=== PATIENT | male | born 1950 | race Caucasian/White ===

== ENCOUNTER 2019-11-05 12:16 | Emergency (ER) | payer MEDICARE, OTHER ==
[~2019-11-05] VITALS: Ht 170.2 cm; Wt 63.5 kg
[2019-11-05 13:29] LABS: Basophils # (auto) 0.1 10 ^3/uL (0-0.2); Basophils % (auto) 0.6 % (0.0-2.0); Eosinophils # (auto) 0.1 10 ^3/uL (0-0.8); Eosinophils % (auto) 0.9 % (0.0-7.0); Hematocrit 47.8 % (41.0-53.0); Hemoglobin 16.3 g/dL (13.5-17.5); Lymphocytes # (auto) 2.6 10 ^3/uL (0.4-5.4); Lymphocytes % (auto) 28.5 % (10.0-50.0); Mean Corpuscular Hemoglobin 33.7 pg (28.0-32.0); Mean Corpuscular Hgb Conc. 34.1 g/dL (32.0-36.0); Mean Corpuscular Volume 98.6 fL (80.0-100.0); Monocytes # (auto) 0.9 10 ^3/uL (0-1.3); Monocytes % (auto) 10.3 % (0.0-12.0); Neutrophils # (auto) 5.4 10 ^3/uL (1.6-8.6); Neutrophils % (auto) 59.7 % (37.0-80.0); Nucleated Red Blood Cells % 0.1 %; Platelet Count (auto) 274 10^3/uL (140-450); Red Blood Cells 4.84 10^6/uL (4.5-5.90); Red Cell Distribution Width 13.9 % (11.8-14.3)
[2019-11-05 14:08] LABS: Albumin 4.2 g/dL (3.4-5.0); Anion Gap 4 (5-15); Blood Urea Nitrogen 13 mg/dL (7-18); Calcium 8.7 mg/dL (8.5-10.1); Carbon Dioxide 24 mmol/L (21-32); Chloride 106 mmol/L (98-107); Glucose 103 mg/dL (74-106); Magnesium 2.7 mg/dL (1.6-2.6); Potassium 4.4 mmol/L (3.5-5.1); Sodium 134 mmol/L (136-145)
[2019-11-05 14:15] LABS: Alanine Aminotransferase 24 U/L (16-61); Alkaline Phosphatase 81 U/L (45-117); Aspartate Aminotransferase 13 U/L (15-37); BUN/Creatinine Ratio 16.5; GFR African American 125 mL/min; GFR Non-African American 103 mL/min; Total Protein 7.4 g/dL (6.4-8.2)
[2019-11-05 17:06] LABS: Alcohol, Urine < 3.0 mg/dL (0-10); Amphetamine Screen, Urine NEGATIVE (NEGATIVE); Barbiturate Scree,Urine NEGATIVE (NEGATIVE); Benzodiazephine Screen, Urine NEGATIVE (NEGATIVE); Cannabinoid Screen, Urine NEGATIVE (NEGATIVE); Cocaine Screen, Urine NEGATIVE (NEGATIVE); Opiate Scree,Urine NEGATIVE (NEGATIVE); Phencyclidine Screen, Urine NEGATIVE (NEGATIVE)
[2019-11-05 17:17] LABS: Urine Bacteria NONE SEEN /hpf (None Seen); Urine Blood Negative /uL (Negative); Urine Mucus FEW (None Seen); Urine Specific Gravity 1.016 (1.001-1.035); Urine WBC 1 /hpf (0 - 3)
[2019-11-05 18:03] VITALS: BP 153/88
== END 2019-11-05 18:04 | disposition home or self-care (01) ==
LOC: ER 12:16
DX: F41.9 Anxiety disorder, unspecified (principal); J44.9 Chronic obstructive pulmonary disease, unspecified; E86.0 Dehydration; F17.210 Nicotine dependence, cigarettes, uncomplicated
CPT/HCPCS: 36415; 71046; 80053; 80307; 81001; 83735; 83880; 84443; 84484; 85025; 93005

== ENCOUNTER 2021-09-12 14:55 | Inpatient (IN) | payer MEDICARE, OTHER ==
[~2021-09-12] VITALS: Ht 167.6 cm; Wt 65.0 kg
[2021-09-12] MEDS ORDERED: methylPREDNISolone SOD SUCC 125 MG/2 ML VL IV ONE (15:15)
[2021-09-12] MEDS ORDERED: ALBUTEROL SULF 2.5 MG/0.5ML(0.5%) NEB SOLN HHN ONE (15:30)
[2021-09-12] MEDS ORDERED: IPRATROPIUM BROM 0.5 MG/2.5ML INH SOL HHN ONE (15:30)
[2021-09-12 16:01] LABS: Basophils # (auto) 0 10 ^3/uL (0-0.2); Basophils % (auto) 0.3 % (0.0-2.0); Eosinophils # (auto) 0 10 ^3/uL (0-0.8); Hematocrit 31.9 % (41.0-53.0); Hemoglobin 10.2 g/dL (13.5-17.5); Lymphocytes # (auto) 1.7 10 ^3/uL (0.4-5.4); Lymphocytes % (auto) 18.1 % (10.0-50.0); Mean Corpuscular Hemoglobin 29.9 pg (28.0-32.0); Mean Corpuscular Hgb Conc. 32.1 g/dL (32.0-36.0); Mean Corpuscular Volume 93.1 fL (80.0-100.0); Monocytes # (auto) 1.4 10 ^3/uL (0-1.3); Neutrophils # (auto) 6.4 10 ^3/uL (1.6-8.6); Neutrophils % (auto) 66.6 % (37.0-80.0); Red Blood Cells 3.43 10^6/uL (4.5-5.90); Red Cell Distribution Width 19.2 % (11.8-14.3); White Blood Cell 9.6 10^3/uL (4.4-10.8)
[2021-09-12 16:06] LABS: Albumin 2.6 g/dL (3.4-5.0); Calcium 8.6 mg/dL (8.5-10.1); Magnesium 2.4 mg/dL (1.6-2.6); Potassium 4.5 mmol/L (3.5-5.1)
[2021-09-12 16:09] LABS: Bilirubin, Total 0.5 mg/dL (0.2-1.0); Total Protein 5.5 g/dL (6.4-8.2)
[2021-09-12 16:19] LABS: Lactic Acid w/Reflex 2.4 mmol/L (0.4-2.0)
[2021-09-12] MEDS ORDERED: FUROSEMIDE 20 MG/2 ML VIAL IV ONE (17:15)
[2021-09-12] MEDS ORDERED: AZITHROMYCIN 500MG/ 250ML 250 ML IV ONE (17:15)
[2021-09-12] MEDS ORDERED: HYDROcodone-ACET 5/325MG TAB PO PRN (17:15)
[2021-09-12] MEDS ORDERED: cefTRIAXone 1GM/50ML D5W 50 ML IV ONE (17:15)
[2021-09-12] MEDS ORDERED: LORazepam 0.5 MG TAB PO PRN (17:15)
[2021-09-12] MEDS ORDERED: HYDROmorphone HCL 2 MG/ML VL/or syr IV PRN (17:15)
[2021-09-12] MEDS ORDERED: MORPHINE SULFATE INJ 2 MG/ml SYRG IV PRN (17:15)
[2021-09-12] MEDS ORDERED: DOCUSATE SOD 100 MG CAP PO PRN (17:15)
[2021-09-12] MEDS ORDERED: ONDANSETRON HCL 4 MG/2 ML VIAL IV PRN (17:15)
[2021-09-12] MEDS ORDERED: NITROGLYCERIN 0.4 MG SL TAB SL PRN (17:15)
[2021-09-12] MEDS ORDERED: DIGOXIN (250MCG/ML) 2 ML AMPULE IV ONE (17:45)
[2021-09-12] MEDS: LEVALBUTEROL HCL 1.25 MG/3 ML NEB NEB SCH (19:33)
[2021-09-12] MEDS: IPRATROPIUM BROM 0.5 MG/2.5ML INH SOL NEB SCH (19:33)
[2021-09-12] MEDS: methylPREDNISolone SOD SUCC 40 MG/ML VL IV SCH (22:42)
[2021-09-12] MEDS: DOXYCYCLINE 100 MG TAB/CAP PO SCH (22:42)
[2021-09-12] MEDS: SODIUM CHLOR 0.9% PF (SALINE LOCK) 10ML VIAL/SYR IV SCH (22:42)
[2021-09-13] VITALS (7 sets, daily range): BP systolic 116–144; BP diastolic 54–68
[2021-09-13] MEDS: LEVALBUTEROL HCL 1.25 MG/3 ML NEB NEB SCH ×4 (00:28→18:58)
[2021-09-13] MEDS: IPRATROPIUM BROM 0.5 MG/2.5ML INH SOL NEB SCH ×4 (00:29→18:58)
[2021-09-13] MEDS ORDERED: ALBU0.084 (03:17)
[2021-09-13] MEDS ORDERED: LOSA-69 PO (03:17)
[2021-09-13] MEDS ORDERED: FLUT1AER3 INH (03:17)
[2021-09-13] MEDS: SODIUM CHLOR 0.9% PF (SALINE LOCK) 10ML VIAL/SYR IV SCH ×3 (06:03→21:23)
[2021-09-13] MEDS: methylPREDNISolone SOD SUCC 40 MG/ML VL IV SCH ×3 (06:05→21:23)
[2021-09-13 06:15] LABS: BUN/Creatinine Ratio 19.2; Calcium 8.7 mg/dL (8.5-10.1); Potassium 4.5 mmol/L (3.5-5.1)
[2021-09-13] MEDS: cefTRIAXone 1GM/50ML D5W 50 ML IV SCH (09:32)
[2021-09-13] MEDS: DOXYCYCLINE 100 MG TAB/CAP PO SCH ×2 (09:33→21:24)
[2021-09-13] MEDS: PANTOPRAZOLE 40 MG TAB PO SCH (09:33)
[2021-09-13] MEDS ORDERED: LOSARTAN POTASSIUM 25 MG TAB PO SCH (10:00)
[2021-09-13] MEDS ORDERED: AMIODARONE HCL 200 MG TAB PO ONE (12:00)
[2021-09-13] MEDS ORDERED: APIXABAN 2.5 MG TAB PO ONE (12:00)
[2021-09-13] MEDS ORDERED: FUROSEMIDE 20 MG/2 ML VIAL IV ONE (12:45)
[2021-09-13] MEDS ORDERED: POLYETHYLENE GLYCOL 17 GM PWDR PO ONE (16:45)
[2021-09-13] MEDS: APIXABAN 5 MG TAB PO SCH (21:24)
[2021-09-13] MEDS: METOPROLOL TARTRATE 25 MG TAB PO SCH (21:24)
[2021-09-14] MEDS: LEVALBUTEROL HCL 1.25 MG/3 ML NEB NEB SCH ×4 (00:30→19:16)
[2021-09-14] MEDS: IPRATROPIUM BROM 0.5 MG/2.5ML INH SOL NEB SCH ×4 (00:30→19:16)
[2021-09-14 05:00] VITALS: BP 141/69
[2021-09-14] MEDS: SODIUM CHLOR 0.9% PF (SALINE LOCK) 10ML VIAL/SYR IV SCH ×3 (06:16→21:39)
[2021-09-14] MEDS: methylPREDNISolone SOD SUCC 40 MG/ML VL IV SCH ×3 (06:16→21:39)
[2021-09-14 07:59] LABS: BUN/Creatinine Ratio 28.8; Calcium 8.7 mg/dL (8.5-10.1); Magnesium 2.4 mg/dL (1.6-2.6); Potassium 4.7 mmol/L (3.5-5.1)
[2021-09-14 09:00] VITALS: BP 143/65
[2021-09-14] MEDS: cefTRIAXone 1GM/50ML D5W 50 ML IV SCH (09:40)
[2021-09-14] MEDS: PANTOPRAZOLE 40 MG TAB PO SCH (09:41)
[2021-09-14] MEDS: POLYETHYLENE GLYCOL 17 GM PWDR PO SCH (09:41)
[2021-09-14] MEDS: APIXABAN 5 MG TAB PO SCH ×2 (09:42→21:33)
[2021-09-14] MEDS: FUROSEMIDE 20 MG/2 ML VIAL IV SCH (09:42)
[2021-09-14] MEDS: METOPROLOL TARTRATE 25 MG TAB PO SCH ×2 (09:43→21:38)
[2021-09-14] MEDS: DOXYCYCLINE 100 MG TAB/CAP PO SCH ×2 (09:43→21:33)
[2021-09-14] MEDS: AMIODARONE HCL 200 MG TAB PO SCH (09:43)
[2021-09-14 13:00] VITALS: BP 128/66
[2021-09-14] MEDS ORDERED: IOHEXOL 350 MG/ML 100ML IJ ONE (15:52)
[2021-09-14 17:00] VITALS: BP 117/54
[2021-09-14 22:00] VITALS: BP 140/63
[2021-09-15] MEDS: IPRATROPIUM BROM 0.5 MG/2.5ML INH SOL NEB SCH ×3 (00:39→11:25)
[2021-09-15] MEDS: LEVALBUTEROL HCL 1.25 MG/3 ML NEB NEB SCH ×3 (00:39→11:25)
[2021-09-15 05:00] VITALS: BP 119/48
[2021-09-15] MEDS: SODIUM CHLOR 0.9% PF (SALINE LOCK) 10ML VIAL/SYR IV SCH ×2 (06:22→13:57)
[2021-09-15] MEDS: methylPREDNISolone SOD SUCC 40 MG/ML VL IV SCH ×2 (06:22→13:57)
[2021-09-15 08:50] VITALS: BP 135/62
[2021-09-15] MEDS: POLYETHYLENE GLYCOL 17 GM PWDR PO SCH (10:02)
[2021-09-15] MEDS: APIXABAN 5 MG TAB PO SCH (10:02)
[2021-09-15] MEDS: AMIODARONE HCL 200 MG TAB PO SCH (10:02)
[2021-09-15] MEDS: METOPROLOL TARTRATE 25 MG TAB PO SCH (10:02)
[2021-09-15] MEDS: cefTRIAXone 1GM/50ML D5W 50 ML IV SCH (10:02)
[2021-09-15] MEDS: FUROSEMIDE 20 MG/2 ML VIAL IV SCH (10:03)
[2021-09-15] MEDS: DOXYCYCLINE 100 MG TAB/CAP PO SCH (10:03)
[2021-09-15] MEDS: PANTOPRAZOLE 40 MG TAB PO SCH (10:03)
[2021-09-15] MEDS ORDERED: FURO1TAB33 PO (10:49)
[2021-09-15] MEDS ORDERED: DOXY-286 PO (10:49)
[2021-09-15] MEDS ORDERED: APIX5TAB PO (10:49)
[2021-09-15] MEDS ORDERED: METH4PAK PO (10:49)
[2021-09-15] MEDS ORDERED: METO25TA5 PO (10:49)
[2021-09-15] MEDS ORDERED: AMIO200T33 PO (10:49)
[2021-09-15 16:46] VITALS: BP 140/60
[2021-09-15 17:03] VITALS: BP 137/45
== END 2021-09-15 18:04 | disposition home or self-care (01) | DRG 189 ==
LOC: ER 14:55 → OVERFLOW 17:23 → TELE-WESTW 23:30
PROVIDERS: ADMIT Internal Medicine; ATTEND Family Medicine
DX: J96.01 Acute respiratory failure with hypoxia (principal); J44.1 Chronic obstructive pulmonary disease with (acute) exacerbation; C34.90 Malignant neoplasm of unspecified part of unspecified bronchus or lung; J90 Pleural effusion, not elsewhere classified; J44.0 Chronic obstructive pulmonary disease with (acute) lower respiratory infection; I10 Essential (primary) hypertension; I48.91 Unspecified atrial fibrillation; R73.03 Prediabetes; D64.9 Anemia, unspecified; F17.210 Nicotine dependence, cigarettes, uncomplicated; Z20.822 Contact with and (suspected) exposure to COVID-19; Z85.118 Personal history of other malignant neoplasm of bronchus and lung; Z86.16 Personal history of COVID-19; Z92.21 Personal history of antineoplastic chemotherapy
CPT/HCPCS: 36415; 36600; 71045; 71250; 71275; 80048; 80053; 82805; 83036; 83605; 83735; 83880; 84443; 84484; 85025; 85379; 87040; 87070; 87077; 87186; 87205; 93005; 93306; 94640; 94644; 96365; 96367; 96375; G0378; J0696